=== PATIENT | male | born 1980 ===

== ENCOUNTER 2022-09-28 04:22 | Day surgery (SDC) | payer OTHER ==
[2022-09-27 14:26] VITALS: BMI 29.4
[2022-09-28 12:47] VITALS: TEMP 98
[2022-09-28 13:41] VITALS: BP 105/64; PULSE 57; RESP 12
== END 2022-09-28 13:54 | disposition home or self-care (01) ==
LOC: JASU-ENDO 04:22
PROVIDERS: ATTEND Internal Medicine Gastroenterology
PROC: 0DBL8ZX Excision of Transverse Colon, Via Natural or Artificial Opening Endoscopic, Diagnostic (ICD-10-PCS; principal; 2022-09-28 12:00)
DX: K63.5 Polyp of colon (principal); K64.8 Other hemorrhoids
CPT/HCPCS: 88305-TC